=== PATIENT | male | born 1985 | race African-American/Black ===

== ENCOUNTER 2018-01-19 23:18 | Emergency (ER) | payer MEDICARE, MEDICAID ==
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
== END 2018-01-20 01:10 | disposition home or self-care (01) ==
LOC: ER 23:18
DX: F20.9 Schizophrenia, unspecified (principal); F31.9 Bipolar disorder, unspecified; M79.1 Myalgia; E11.9 Type 2 diabetes mellitus without complications
CPT/HCPCS: Z7502